=== PATIENT | female | born 1990 | race Caucasian/White ===

== ENCOUNTER 2018-05-11 19:17 | Inpatient (IN) | payer MEDICAID ==
[~2018-05-11] VITALS: Ht 167.6 cm; Wt 92.1 kg
[2018-05-11] MEDS ORDERED: LITH600C PO (21:23)
[2018-05-11] MEDS ORDERED: OLAN5TAB2 PO (21:23)
[2018-05-11] MEDS ORDERED: OLAN10TA20 PO (21:23)
[2018-05-11] MEDS ORDERED: ZOLPIDEM TARTRATE 10 MG TABLET PO PRN (21:45)
[2018-05-11 21:51] LABS: BASOPHILS % (AUTO) 0.4 % (0.0-2.0); EOSINOPHILS % (AUTO) 0 % (1.0-6.0); HEMOGLOBIN 12.4 g/dL (12.0-16.0); LYMPHOCYTES # (AUTO) 2.1 K/uL (1.0-4.8); LYMPHOCYTES % (AUTO) 23.9 % (22.0-44.0); MEAN CORPUSCULAR HEMOGLOBIN 27.5 pg (26.0-34.0); MEAN CORPUSCULAR HGB CONC 33.5 G/dL (31.0-37.0); MEAN CORPUSCULAR VOLUME 82 fL (80-100); MONOCYTES # (AUTO) 0.5 K/uL (0.1-1.0); MONOCYTES % (AUTO) 5.6 % (2.0-9.0); NEUTROPHILS # (AUTO) 6.3 K/uL (1.8-7.7); NEUTROPHILS % (AUTO) 70.1 % (40.0-70.0); PLATELET COUNT (AUTO) 223 K/uL (150-450); RED BLOOD CELL COUNT(AUTO) 4.51 MIL/uL (4.00-5.20); RED CELL DISTRIBUTION WIDTH 13.7 % (11.5-14.5)
[2018-05-11 21:59] LABS: ANION GAP 9 mmol/L (8-16); CARBON DIOXIDE 24 mmol/L (22-29); CHLORIDE 104 mmol/L (98-107); CREATININE 0.61 mg/dL (0.60-1.30); GLOMERULAR FILTR. RATE CALC > 60 mL/min (>60); GLUCOSE,RANDOM 101 mg/dL (70-110); POTASSIUM 3.9 mmol/L (3.5-5.1); SODIUM SERUM 137 mmol/L (136-145); UREA NITROGEN, BLOOD 10 mg/dL (7-18)
[2018-05-11 22:04] LABS: ALANINE AMINOTRANSFERASE 43 U/L (12-78); ALBUMIN 3.6 g/dL (3.4-5.0); ALKALINE PHOSPHATASE 81 U/L (46-116); ASPARTATE AMINOTRANSFERASE 20 U/L (15-37); BILIRUBIN,TOTAL 0.3 mg/dL (0.1-1.0); TOTAL PROTEIN, SERUM 7.4 g/dL (6.4-8.2)
[2018-05-11 22:15] LABS: HEMOGLOBIN A1C 5.4 % (4.5-6.2)
[2018-05-11 22:24] LABS: CHOL/HDL RATIO 3.8 (3.9-5.7); CHOLESTEROL 126 mg/dL (131-200); FREE T4 (FREE THYROXINE) 0.97 ng/dL (0.76-1.46); HDL CHOLESTEROL 33 mg/dL (40-60); LDL CHOL (CALC.) 68 mg/dL (0-130); THYROID STIMULATING HORMONE 1.57 uIU/mL (0.36-3.74); TRIGLYCERIDES 123 mg/dL (15-150)
[2018-05-11] MEDS ORDERED: OLANZapine 5 MG TABLET PO ONE (22:45)
[2018-05-12] VITALS: BP 114/62
[2018-05-12] MEDS ORDERED: MAGNESIUM HYDROXIDE SUSPENSION 30 ML UDCUP PO PRN (07:30)
[2018-05-12] MEDS ORDERED: LOPERAMIDE HCL 2 MG CAPSULE PO PRN (07:30)
[2018-05-12] MEDS ORDERED: CloNIDine HCL 0.1 MG TABLET PO PRN (07:30)
[2018-05-12] MEDS ORDERED: GuaiFENesin/D-METHORPHAN [SUGAR-FREE] 200-20MG/10 ML SYRUP UDCUP PO PRN (07:30)
[2018-05-12] MEDS ORDERED: ACETAMINOPHEN 325 MG TABLET PO PRN (07:30)
[2018-05-12] MEDS ORDERED: PETROLATUM,WHITE 71 GM JELLY TP PRN (07:30)
[2018-05-12] MEDS ORDERED: IBUPROFEN 400 MG TABLET PO PRN (07:30)
[2018-05-12] MEDS ORDERED: ALBUTEROL SULFATE HFA 90 MCG/PUFF 8 GM INHALER IH PRN (07:30)
[2018-05-12] MEDS ORDERED: MAG HYDROX/AL HYDROX/SIMETH ES 30 ML SUSPENSION UDCUP PO PRN (07:30)
[2018-05-12] MEDS ORDERED: DOCUSATE SODIUM 100 MG CAPSULE PO PRN (07:30)
[2018-05-12] MEDS ORDERED: ONDANSETRON HCL 4 MG TABLET PO PRN (07:30)
[2018-05-12 10:03] VITALS: BP 116/82
[2018-05-12] MEDS ORDERED: LORazepam 2 MG/ML VIAL ONE (14:48)
[2018-05-12] MEDS ORDERED: DiphenhydrAMINE HCL 50 MG/ML VIAL ONE (14:48)
[2018-05-12] MEDS ORDERED: HALOPERIDOL LACTATE 5 MG/ML VIAL ONE (14:48)
[2018-05-12] MEDS ORDERED: DiphenhydrAMINE HCL 50 MG/ML VIAL IM ONE (15:00)
[2018-05-12] MEDS ORDERED: LORazepam 2 MG/ML VIAL IM ONE (15:00)
[2018-05-12] MEDS ORDERED: HALOPERIDOL LACTATE 5 MG/ML VIAL IM ONE (15:00)
[2018-05-12 16:11] VITALS: BP 124/77
[2018-05-12] MEDS: OLANZapine 5 MG TABLET PO SCH (16:23)
[2018-05-12] MEDS: LITHIUM CARBONATE 600 MG CAPSULE PO SCH (16:23)
[2018-05-13 06:09] LABS: BASOPHILS % (AUTO) 0.6 % (0.0-2.0); EOSINOPHILS % (AUTO) 0.1 % (1.0-6.0); HEMATOCRIT 39.9 % (36-46); HEMOGLOBIN 13.5 g/dL (12.0-16.0); LYMPHOCYTES # (AUTO) 2.4 K/uL (1.0-4.8); LYMPHOCYTES % (AUTO) 44.8 % (22.0-44.0); MEAN CORPUSCULAR HEMOGLOBIN 27.8 pg (26.0-34.0); MEAN CORPUSCULAR HGB CONC 33.8 G/dL (31.0-37.0); MEAN CORPUSCULAR VOLUME 82 fL (80-100); MONOCYTES # (AUTO) 0.4 K/uL (0.1-1.0); MONOCYTES % (AUTO) 7.7 % (2.0-9.0); NEUTROPHILS # (AUTO) 2.5 K/uL (1.8-7.7); NEUTROPHILS % (AUTO) 46.8 % (40.0-70.0); PLATELET COUNT (AUTO) 225 K/uL (150-450); RED BLOOD CELL COUNT(AUTO) 4.86 MIL/uL (4.00-5.20); RED CELL DISTRIBUTION WIDTH 13.4 % (11.5-14.5)
[2018-05-13 06:24] LABS: ALANINE AMINOTRANSFERASE 42 U/L (12-78); ALBUMIN 3.6 g/dL (3.4-5.0); ALKALINE PHOSPHATASE 82 U/L (46-116); ANION GAP 8 mmol/L (8-16); ASPARTATE AMINOTRANSFERASE 22 U/L (15-37); BILIRUBIN,TOTAL 0.4 mg/dL (0.1-1.0); CALCIUM, TOTAL 9.3 mg/dL (8.8-10.5); CARBON DIOXIDE 28 mmol/L (22-29); CHLORIDE 104 mmol/L (98-107); CHOL/HDL RATIO 4.4 (3.9-5.7); CHOLESTEROL 142 mg/dL (131-200); CREATININE 0.67 mg/dL (0.60-1.30); GLOMERULAR FILTR. RATE CALC > 60 mL/min (>60); GLUCOSE,RANDOM 85 mg/dL (70-110); HDL CHOLESTEROL 32 mg/dL (40-60); LDL CHOL (CALC.) 86 mg/dL (0-130); POTASSIUM 4.2 mmol/L (3.5-5.1); SODIUM SERUM 140 mmol/L (136-145); THYROID STIMULATING HORMONE 0.92 uIU/mL (0.36-3.74); TOTAL PROTEIN, SERUM 7.1 g/dL (6.4-8.2); TRIGLYCERIDES 118 mg/dL (15-150); UREA NITROGEN, BLOOD 11 mg/dL (7-18)
[2018-05-13 06:28] LABS: HEMOGLOBIN A1C 5.4 % (4.5-6.2)
[2018-05-13 08:55] VITALS: BP 128/72
[2018-05-13] MEDS: LITHIUM CARBONATE 600 MG CAPSULE PO SCH ×2 (08:58→17:42)
[2018-05-13] MEDS: OLANZapine 5 MG TABLET PO SCH ×2 (08:58→17:42)
[2018-05-13] MEDS ORDERED: LORazepam 2 MG/ML VIAL IM ONE (14:10)
[2018-05-13] MEDS ORDERED: HALOPERIDOL LACTATE 5 MG/ML VIAL IM ONE (14:10)
[2018-05-13] MEDS ORDERED: DiphenhydrAMINE HCL 50 MG/ML VIAL IM ONE (14:10)
[2018-05-13 16:06] VITALS: BP 145/60
[2018-05-13] MEDS: LORazepam 1 MG TABLET PO PRN (19:49)
[2018-05-14] MEDS: LITHIUM CARBONATE 600 MG CAPSULE PO SCH ×2 (10:30→17:00)
[2018-05-14] MEDS: OLANZapine 5 MG TABLET PO SCH ×2 (10:31→17:00)
[2018-05-14] MEDS: LORazepam 1 MG TABLET PO PRN ×2 (10:31→17:00)
[2018-05-14] MEDS ORDERED: DiphenhydrAMINE HCL 50 MG/ML VIAL ONE (12:25)
[2018-05-14] MEDS ORDERED: HALOPERIDOL LACTATE 5 MG/ML VIAL ONE (12:25)
[2018-05-14] MEDS ORDERED: LORazepam 2 MG/ML VIAL ONE (12:25)
[2018-05-14] MEDS ORDERED: DiphenhydrAMINE HCL 50 MG/ML VIAL IM ONE (12:30)
[2018-05-14] MEDS ORDERED: LORazepam 2 MG/ML VIAL IM ONE (12:30)
[2018-05-14] MEDS ORDERED: HALOPERIDOL LACTATE 5 MG/ML VIAL IM ONE (12:30)
[2018-05-14 16:25] VITALS: BP 127/82
[2018-05-15] MEDS ORDERED: LORazepam 2 MG/ML VIAL IM ONE ×2 (08:45→18:45)
[2018-05-15] MEDS ORDERED: HALOPERIDOL LACTATE 5 MG/ML VIAL IM ONE ×2 (08:45→18:45)
[2018-05-15] MEDS ORDERED: DiphenhydrAMINE HCL 50 MG/ML VIAL IM ONE ×2 (08:45→18:45)
[2018-05-15] MEDS: LITHIUM CARBONATE 600 MG CAPSULE PO SCH ×2 (10:15→16:47)
[2018-05-15] MEDS: OLANZapine 5 MG TABLET PO SCH ×2 (10:15→16:48)
[2018-05-15] MEDS: LORazepam 1 MG TABLET PO PRN ×2 (11:30→15:41)
[2018-05-15] MEDS: CIPROFLOXACIN HCL 0.2%/HYDROCORT 1% 10 ML OTIC SUSPENSION AU SCH (18:05)
[2018-05-15] MEDS: OLANZapine 5 MG RAPDIS TABLET PO PRN (18:32)
[2018-05-15 19:19] VITALS: BP 120/73
[2018-05-16] MEDS: LITHIUM CARBONATE 600 MG CAPSULE PO SCH ×2 (09:14→16:26)
[2018-05-16] MEDS: OLANZapine 5 MG TABLET PO SCH ×2 (09:15→16:26)
[2018-05-16] MEDS: LORazepam 1 MG TABLET PO PRN (09:15)
[2018-05-16] MEDS: CIPROFLOXACIN HCL 0.2%/HYDROCORT 1% 10 ML OTIC SUSPENSION AU SCH ×3 (09:18→16:26)
[2018-05-16 11:39] VITALS: BP 109/76
[2018-05-16 16:00] VITALS: BP 104/56
[2018-05-17 07:43] LABS: APPEARANCE,URINE CLEAR (CLEAR); BILIRUBIN,URINE NEGATIVE (NEGATIVE); GLUCOSE, URINE (UA) NEGATIVE (NEGATIVE); KETONES,URINE NEGATIVE (NEGATIVE); LEUKOCYTE ESTERASE ,URINE NEGATIVE (NEGATIVE); NITRATE,URINE NEGATIVE (NEGATIVE); OCCULT BLOOD,URINE NEGATIVE (NEGATIVE); PH,URINE 7.5 (5.0-8.0); PROTEIN,URINE NEGATIVE (NEGATIVE); UROBILINOGEN,URINE 0.2 mg/dL (<=1.0)
[2018-05-17] MEDS: LITHIUM CARBONATE 600 MG CAPSULE PO SCH ×2 (08:13→17:05)
[2018-05-17] MEDS: LORazepam 1 MG TABLET PO PRN ×2 (08:13→12:26)
[2018-05-17] MEDS: OLANZapine 5 MG TABLET PO SCH ×2 (08:13→17:05)
[2018-05-17] MEDS: CIPROFLOXACIN HCL 0.2%/HYDROCORT 1% 10 ML OTIC SUSPENSION AU SCH ×3 (08:13→17:06)
[2018-05-17 08:33] VITALS: BP 125/79
[2018-05-17] MEDS: OLANZapine 5 MG RAPDIS TABLET PO PRN (12:26)
[2018-05-17 18:15] VITALS: BP 123/71
[2018-05-18 08:58] VITALS: BP 128/78
[2018-05-18] MEDS: OLANZapine 5 MG TABLET PO SCH ×2 (09:07→17:47)
[2018-05-18] MEDS: LITHIUM CARBONATE 600 MG CAPSULE PO SCH ×2 (09:07→17:45)
[2018-05-18] MEDS: CIPROFLOXACIN HCL 0.2%/HYDROCORT 1% 10 ML OTIC SUSPENSION AU SCH ×3 (09:08→17:48)
[2018-05-18] MEDS ORDERED: LORazepam 2 MG/ML VIAL IM ONE (15:15)
[2018-05-18] MEDS ORDERED: HALOPERIDOL LACTATE 5 MG/ML VIAL IM ONE (15:15)
[2018-05-18] MEDS ORDERED: DiphenhydrAMINE HCL 50 MG/ML VIAL IM ONE (15:15)
[2018-05-18 17:00] VITALS: BP 119/81
[2018-05-19 08:05] VITALS: BP 111/56
[2018-05-19] MEDS: OLANZapine 5 MG TABLET PO SCH (08:28)
[2018-05-19] MEDS: LITHIUM CARBONATE 600 MG CAPSULE PO SCH ×2 (08:28→16:57)
[2018-05-19] MEDS: CIPROFLOXACIN HCL 0.2%/HYDROCORT 1% 10 ML OTIC SUSPENSION AU SCH ×3 (08:29→16:57)
[2018-05-19] MEDS: OLANZapine 10 MG TABLET PO SCH (16:57)
[2018-05-19 19:52] VITALS: BP 121/62
[2018-05-20 08:00] VITALS: BP 136/75
[2018-05-20] MEDS: OLANZapine 10 MG TABLET PO SCH ×2 (08:04→16:39)
[2018-05-20] MEDS: LORazepam 1 MG TABLET PO PRN ×2 (08:04→18:50)
[2018-05-20] MEDS: LITHIUM CARBONATE 600 MG CAPSULE PO SCH ×2 (08:04→16:39)
[2018-05-20] MEDS: CIPROFLOXACIN HCL 0.2%/HYDROCORT 1% 10 ML OTIC SUSPENSION AU SCH ×3 (08:04→16:39)
[2018-05-20 18:38] VITALS: BP 128/65
[2018-05-21 08:16] VITALS: BP 117/73
[2018-05-21] MEDS: OLANZapine 10 MG TABLET PO SCH ×2 (08:41→16:30)
[2018-05-21] MEDS: LITHIUM CARBONATE 600 MG CAPSULE PO SCH ×2 (08:41→16:29)
[2018-05-21] MEDS: CIPROFLOXACIN HCL 0.2%/HYDROCORT 1% 10 ML OTIC SUSPENSION AU SCH ×3 (09:00→16:29)
[2018-05-21 16:16] VITALS: BP 126/73
[2018-05-22] MEDS: LITHIUM CARBONATE 600 MG CAPSULE PO SCH ×2 (08:16→16:28)
[2018-05-22] MEDS: OLANZapine 10 MG TABLET PO SCH ×2 (08:16→16:28)
[2018-05-22 09:00] VITALS: BP 106/80
[2018-05-22] MEDS: CIPROFLOXACIN HCL 0.2%/HYDROCORT 1% 10 ML OTIC SUSPENSION AU SCH ×3 (09:00→16:29)
[2018-05-22] MEDS ORDERED: LITH600 PO (12:53)
[2018-05-22] MEDS ORDERED: OLAN10TA20 PO (12:54)
[2018-05-22 17:02] VITALS: BP 123/68
== END 2018-05-22 18:45 | disposition home or self-care (01) | DRG 750 ==
LOC: EMS 19:18 → 3EI 22:15 → 3EC 05-12 17:00
PROVIDERS: ADMIT Psychiatry & Neurology Child & Adolescent Psychiatry; ATTEND Psychiatry & Neurology Child & Adolescent Psychiatry
DX: F25.1 Schizoaffective disorder, depressive type (principal); F17.200 Nicotine dependence, unspecified, uncomplicated; F41.9 Anxiety disorder, unspecified; G47.00 Insomnia, unspecified; Z71.6 Tobacco abuse counseling
CPT/HCPCS: 83036; 84439; 84443; 87081; G0480; J1200; J1630; J2060